=== PATIENT | male | born 1965 | race Caucasian/White ===

== ENCOUNTER 2017-11-29 09:31 | Emergency (ER) | payer OTHER ==
--- NOTE | 2017-11-29 09:38 | EDPHY ---
H & P Stated Complaint: Blood in stool/abd cramps since early this morning Time Seen by Provider: 11/29/17 09:37 - Personal History Current Tetanus Diphtheria and Acellular Pertussis (TDAP): Yes - Medical/Surgical History Other PMH: healthy - Social History Smoking Status: Former smoker Constitutional: Initial Vital Signs Temperature (C) 36.5 C 11/29/17 09:32 Heart Rate 97 11/29/17 09:32 Respiratory Rate 18 11/29/17 09:32 Blood Pressure 117/87 H 11/29/17 09:32 O2 Sat (%) 97 11/29/17 09:32 O2 Delivery Mode Room Air Allergies/Adverse Reactions: No Known Allergies Allergy (Unverified 11/29/17 09:36) Home Medications: Medication Instructions Recorded NK [No Known Home Meds] 11/29/17 Medical Decision Making - Diagnostics Imaging Results: Imaging Impressions Abdomen CT 11/29/17 09:51 Impression: 1. Mild colitis involving the descending and sigmoid colon. Differential diagnosis includes ulcerative colitis and Crohn's disease. No diverticula to suggest acute diverticulitis. 2. No abscess, mass, or obstruction. Findings discussed with Emergency Department physician, Ceasar Sanchez MD, on 11/29/2017, 11:27. Imaging: Discussed imaging studies w/ manager call Radiologist, I viewed and interpreted images myself ED Course/Re-evaluation: CHIEF COMPLAINT: Bloody diarrhea HISTORY OF PRESENT ILLNESS: The patient is a 52 y/o male arriving with his complaining of bloody diarrhea and abdominal cramping onset this morning. At 01:00 this morning, about 9 hours ago, he awoke with abdominal cramping and had a bowel movement that "started as a solid BM and ended as diarrhea." He returned to sleep and then woke again with two more abdominal cramping and diarrhea episodes. At 05:30 when wiping he noticed maroon blood on the toilet paper and saw what he describes as clots in the toilet mixed in with the stool. He's never experienced blood in his stool before, but does have occasional episodes of abdominal cramping and diarrhea. He denies fever, myalgias, cough, cold, vomiting, recent illness, or recent trauma. He had a colonoscopy at age 35 because his father had a history of polyps and he believes this exam was normal. No personal or family history of inflammatory bowel disease. REVIEW OF SYSTEMS: A comprehensive 10 system review of systems is otherwise negative aside from elements mentioned in the history of present illness and medical decision making. PHYSICAL EXAM: HR, BP, O2 Sat, RR. Temp noted General Appearance: Alert, well hydrated, appropriate, and non-toxic appearing. Head: Atraumatic without scalp tenderness or obvious injury Eyes: Pupils equal, round, reactive to light and accommodation, EOMI, no trauma , no injection. Nose: Atraumatic, no rhinorrhea, clear. Throat: Mucus membranes moist. Neck: Supple, nontender, no lymphadenopathy. Respiratory: No retractions, no distress, no wheezes, and no accessory muscle use. Lungs are clear to auscultation bilaterally. Cardiovascular: Regular rate and rhythm, no murmurs, rubs, or gallops. Good capillary refill all extremities. Gastrointestinal: Abdomen is soft, nontender, non-distended, no masses, no rebound, no guarding, no peritoneal signs. Musculoskeletal: Normal active ROM of all extremities, atraumatic. Neurological: Alert, appropriate, and interactive. The patient has non-focal cranial nerves, motor, sensory, and cerebellar exam. Skin: No rashes, good turgor, no nodules on palpation. Past medical history: Denies Past surgical history: Bilateral inguinal hernia repairs June [address] Bautista. Family history: Noncontributory Social history: at bedside. Works at [employer]. DIAGNOSTICS/PROCEDURES/CRITICAL CARE TIME: Abdominal CT: diffuse colitis - infectious vs ulcerative, no diverticulitis DIFFERENTIAL DIAGNOSIS: The differential diagnosis for the patient's lower GI bleeding included but was not limited to diverticulosis, tumor, AVM, hemorrhoid , and upper GI Bleed. MEDICAL DECISION MAKING: This is a normally healthy 52 y/o male who presents with a 9-hour history of abdominal cramping and bloody diarrhea. He has a benign abdomen on exam and is generally well-appearing. Plan for IV, labs, stool sample and GI pathogen panel , abdominal CT. CT shows diffuse colitis that could be infectious vs ulcerative. Labs are unremarkable. Plan to consult GI regarding treatment options. 1155: Consulted with Dr. Walker, GI. He does not recommend antibiotics nor steroids at this time and would like to see him in the office for colonoscopy in 2 weeks. Plan for and discharge home with referral to GI for colonoscopy within 2 weeks. Standard care and follow up instructions given and return precautions discussed. He is comfortable with this plan. - Data Points Laboratory Results: Laboratory Results 11/29/17 10:21 11/29/17 09:40 11/29/17 11/29/17 11/29/17 10:32 10:21 10:21 WBC 9.94 10^3/uL H 10^3/uL (3.80-9.50) RBC 5.64 10^6/uL 10^6/uL (4.40-6.38) Hgb 17.2 g/dL g/dL (13.7-17.5) POC Hgb 16.7 gm/dL gm/dL (13.7-17.5) Hct 48.8 % % (40.0-51.0) POC Hct 49 % % (40-51) MCV 86.5 fL fL (81.5-99.8) MCH 30.5 pg pg (27.9-34.1) MCHC 35.2 g/dL g/dL (32.4-36.7) RDW 12.4 % % (11.5-15.2) Plt Count 200 10^3/uL 10^3/uL (150-400) MPV 10.8 fL fL (8.7-11.7) Neut % (Auto) 84.8 % H % (39.3-74.2) Lymph % (Auto) 10.0 % L % (15.0-45.0) Person % (Auto) 4.3 % L % (4.5-13.0) Eos % (Auto) 0.1 % L % (0.6-7.6) Baso % (Auto) 0.4 % % (0.3-1.7) Nucleat RBC Rel Count 0.0 % % (0.0-0.2) Absolute Neuts (auto) 8.43 10^3/uL H 10^3/uL (1.70-6.50) Absolute Lymphs (auto) 0.99 10^3/uL L 10^3/uL (1.00-3.00) Absolute Monos (auto) 0.43 10^3/uL 10^3/uL (0.30-0.80) Absolute Eos (auto) 0.01 10^3/uL L 10^3/uL (0.03-0.40) Absolute Basos (auto) 0.04 10^3/uL 10^3/uL (0.02-0.10) Absolute Nucleated RBC 0.00 10^3/uL 10^3/uL (0-0.01) Immature Gran % 0.4 % % (0.0-1.1) Immature Gran # 0.04 10^3/uL 10^3/uL (0.00-0.10) PT 13.0 SEC SEC (12.0-15.0) INR 0.96 (0.83-1.16) APTT 22.5 SEC L SEC (23.0-38.0) POC Sodium 140 mEq/L mEq/L (135-145) Sodium POC Potassium 4.0 mEq/L mEq/L (3.3-5.0) Potassium POC Chloride 104 mEq/L mEq/L (97-110) Chloride Carbon Dioxide Anion Gap POC BUN 17 mg/dL mg/dL (7-23) BUN Creatinine POC Creatinine 0.8 mg/dL mg/dL (0.7-1.3) Estimated GFR Glucose POC Glucose 109 mg/dL H mg/dL (70-100) Calcium Total Bilirubin Conjugated Bilirubin Unconjugated Bilirubin AST ALT Alkaline Phosphatase Total Protein Albumin Lipase 11/29/17 09:40 WBC RBC Hgb POC Hgb Hct POC Hct MCV MCH MCHC RDW Plt Count MPV Neut % (Auto) Lymph % (Auto) Person % (Auto) Eos % (Auto) Baso % (Auto) Nucleat RBC Rel Count Absolute Neuts (auto) Absolute Lymphs (auto) Absolute Monos (auto) Absolute Eos (auto) Absolute Basos (auto) Absolute Nucleated RBC Immature Gran % Immature Gran # PT INR APTT POC Sodium Sodium 137 mEq/L mEq/L (135-145) POC Potassium Potassium 4.1 mEq/L mEq/L (3.3-5.0) POC Chloride Chloride 105 mEq/L mEq/L (97-110) Carbon Dioxide 22 mEq/l mEq/l (22-31) Anion Gap 10 mEq/L mEq/L (6-14) POC BUN BUN 18 mg/dL mg/dL (7-23) Creatinine 0.8 mg/dL mg/dL (0.7-1.3) POC Creatinine Estimated GFR Pending Glucose 113 mg/dL H mg/dL (70-100) POC Glucose Calcium 9.5 mg/dL mg/dL (8.5-10.4) Total Bilirubin 1.6 mg/dL H mg/dL (0.1-1.4) Conjugated Bilirubin 0.1 mg/dL mg/dL (0.0-0.5) Unconjugated Bilirubin 1.5 mg/dL H mg/dL (0.0-1.1) AST 23 IU/L IU/L (17-59) ALT 31 IU/L IU/L (21-72) Alkaline Phosphatase 55 IU/L IU/L (38-126) Total Protein 7.6 g/dL g/dL (6.3-8.2) Albumin 4.5 g/dL g/dL (3.5-5.0) Lipase 41 IU/L IU/L (23-300) Medications Given: Discontinued Medications Sodium Chloride (Ns) 1,000 mls @ 0 mls/hr IV EDNOW ONE; Wide Open PRN Reason: Protocol Stop: 11/29/17 09:41 Last Admin: 11/29/17 10:23 Dose: 1,000 mls Point of Care Test Results: Chemistry 11/29/17 10:32 POC Sodium 140 mEq/L mEq/L (135-145) POC Potassium 4.0 mEq/L mEq/L (3.3-5.0) POC Chloride 104 mEq/L mEq/L (97-110) POC BUN 17 mg/dL mg/dL (7-23) POC Creatinine 0.8 mg/dL mg/dL (0.7-1.3) POC Glucose 109 mg/dL H mg/dL (70-100) ISTAT H&H 11/29/17 10:32 POC Hgb 16.7 gm/dL gm/dL (13.7-17.5) POC Hct 49 % % (40-51) Departure - Departure Disposition: Home, Routine, Self-Care Clinical Impression: Colitis Condition: Good Instructions: Colitis (ED) Additional Instructions: Follow up with GI in the next [address] Walker, who we consulted with today, said to tell his office to schedule you for a colonoscopy in 2 weeks. You do not need an initial intake appointment prior to this per Dr. Walker. Return to the ED for worsening of condition. Referrals: Viktoriya Elkins MD [Primary Care Provider] - As per Instructions Valeriy Walker MD, FACG [Medical Doctor] - As per Instructions Report Scribed for: Ceasar Sanchez Report Scribed by: Judith Hurtado Date of Report: 11/29/17 Time of Report: 09:42
[2017-11-29] MEDS ORDERED: NS 1,000 ML IV ONE (09:40)
[2017-11-29 10:25] LABS: PLATELET COUNT 200 10^3/uL (150-400)
[2017-11-29] MEDS ORDERED: IOPAMIDOL (ISOVUE-300) 100 ML BTL ONE (10:36)
[2017-11-29 10:55] LABS: INR 0.96 (0.83-1.16)
[2017-11-29 12:10] VITALS: BP 136/77
== END 2017-11-29 12:10 | disposition home or self-care (01) ==
DX: K52.9 Noninfective gastroenteritis and colitis, unspecified (principal); E86.9 Volume depletion, unspecified
CPT/HCPCS: 82435-PO; 82565-PO; 82947-PO; 84132-PO; 84295-PO; 84520-PO; 85014-PO; Q9967